=== PATIENT | male | born 1950 | race Caucasian/White ===

== ENCOUNTER → 2016-12-07 07:58 | Outpatient (CLI) | payer MEDICARE, OTHER ==
[2012-10-11 21:46] VITALS: BMI 27.2
[~2016-12-07 07:58] MED LIST: CENTRUM COMPLE1 EACH PO; DIOVAN160 MG PO; NORVASC10 MG PO; OMEGA 3 FISH OI1 CAP PO
[2016-12-10 07:34] VITALS: BMI 27.0
== END ==
LOC: D.MRI 07:58
DX: R51 Headache (principal)

== ENCOUNTER 2016-12-10 06:39 | Outpatient (CLI) | payer MEDICARE, OTHER ==
[~2016-12-10] VITALS: Ht 175.3 cm; Wt 83.2 kg
--- NOTE | ~2016-12-10 | HEMODYNAMI ---
PATIENT:GEOFF MITCHELL MEDICAL RECORD: [id number] : 52 LOCATION:[facility] ADMISSION DATE: 12/10/16 Generatedon:12/11/20166:25 Patient name: GEOFF MITCHELL Patient #: [id number] : 1950 Date of study: 12/10/2016 Page: Of Hemodynamic Procedure Report Patient Data Patient Demographics Procedure consent was obtained First Name: GEOFF Gender: Male Last Name: PAULA : 1950 Middle Initial: A Age: 66 year(s) Patient #: [id number] Race: SSN: [id number] Additional ID: [id number] Contact details Address: [address] [place] [address] State: [place] City: [place] Zip code: [address] Admission Admission Data Admission Date: 12/10/2016 Admission Time: 6:39 Arrival Date: 12/10/2016 Arrival Time: 9:00 Admit Source: Other Insurance Payor: Medicare Height (in.): 69.5 BSA: 2.03 (m2) Height (cm.): 176.53 BMI: 27.51 (kg/m2) Weight (lbs.): 189 Weight (kg.): 85.73 Lab Results Lab Result Date: 12/10/2016 Lab Result Time: 0:00 Biochemistry Name Units Result Min Max BUN mg/dl 20 --(----)*- 7 18 Creatinine mg/dl 1 --(--*-)-- 0.6 1.3 CBC Name Units Result Min Max Hemoglobin g/dl 14.9 --(-*--)-- 13.5 17.5 Procedure Procedure Types Cath Procedure Diagnostic Procedure [facility] w/Coronaries Procedure Description Procedure Date Procedure Date: 12/10/2016 Procedure Start Time: 9:13 Procedure End Time: 9:25 Procedure Staff Name Function Elizabeth Thapa RT Monitor Sanjay Cummings RN Childhood Development Teacher Anh Almonte RN Nurse Randy Choe MD Performing Physician Khoa Villegas RT Scrub Amparo Cazares RT Monitor Procedure Data Cath Procedure Fluoroscopy Diagnostic fluoroscopy Total fluoroscopy Time: 2.9 time: 2.9 min min Diagnostic fluoroscopy Total fluoroscopy dose: 420 dose: 420 mGy mGy Contrast Material Contrast Material Type Amount (ml) Isovue 370 60 Entry Location Entry Primary Successful Side Size Upsize Upsize Entry Closure Foley ccessful Closure Location (Fr) 1 (Fr) 2 (Fr) Remarks Device Remarks Radial Right 6 Fr Mechanical artery Short Compression Estimated blood loss: 5 ml Diagnostic catheters Device Type Used For End Catheter Placement Terumo 5Fr Tony 110cm Multi-vessel catheter Angiography Cordis Infinity 5Fr AR Right Coronary MOD Catheter Angiography Procedure Complications No complications Procedure Medications Medication Administration Route Dosage Oxygen NC 2 l/min Lidocaine 2% added to field 20 Heparin Flush Bag added to field 2 bags (1000units/500ml NS) 0.9% NaCl I.V. 100 ml/hr Radial Cocktail I.A. 1 syringe (Verapomil 2mg/Nitro 400mcg/Heparin 1500units) Versed I.V. 1 mg Fentanyl I.V. 50 mcg Versed I.V. 1 mg Fentanyl I.V. 50 mcg Versed I.V. 1 mg Fentanyl I.V. 50 mcg Versed I.V. 1 mg Fentanyl I.V. 50 mcg Versed I.V. 0.5 mg Fentanyl I.V. 25 mcg Hemodynamics Rest BSA: 2.03 (m2) HGB: 14.9 (g/dl) O2 Consumption: Estimated: 234.94 (ml/min) O2 Co nsumption indexed: Estimated:115.73 (ml/min/m) Heart Rate: 68 (bpm) Pressure Samples Time Site Value (mmHg) Purpose Heart Use Rate(bpm) 9:18 LV 139/-7,14 Snapshot 76 9:18 LV 117/-6,7 Pullback 83 9:18 AO 104/66(79) Pullback 83 Gradients Valve Time Site 1 Site 2 Mean SEP/DFP Peak To Heart Use (mmHg) (sec/min) Peak Rate (mmHg) (bpm) Aortic 9:18 LV AO 13 6 13 83 117/-6,7 104/66(79) Calculations Valve P-P Mean Valve Index Valve Source Name Gradient Area Flow (cm2) Aortic 13 13 13 13 Snapshots Pre Cath Intra NCS Post Cath Vital Signs Time Heart Resp SPO2 NIBP (mmHg) Rhythm Pain Sedation Rate (ipm) (%) Status Level (bpm) 8:59:43 73 16 98 129/84(109) NSR 0 (11) 10(A) , No pain 9:03:51 68 16 95 120/79(92) NSR 0 (11) 10(A) , No pain 9:07:59 75 16 97 114/75(95) NSR 0 (11) 10(A) , No pain 9:12:04 59 16 97 112/73(92) NSR 0 (11) 9(A) , No pain 9:16:10 61 18 96 106/75(89) NSR 0 (11) 9(A) , No pain 9:20:14 77 16 95 109/66(88) NSR 0 (11) 10(A) , No pain 9:24:20 69 17 95 103/67(76) NSR 0 (11) 10(A) , No pain Medications Time Medication Route Dose Verified Delivered Reason Notes E ffectiveness by by 8:57:03 Oxygen NC 2 l/min Randy Buffie used for Дмитрий Almonte RN procedure 9:03:15 Versed I.V. 1 mg Randy Buffie for sedation Дмитрий Almonte RN 9:03:22 Fentanyl I.V. 50 mcg Randy Buffie for sedation Дмитрий Almonte RN 9:04:33 Lidocaine 2% added 20ml Randy Randy for local to vial Дмитрий Choe MD anesthetic field 9:04:42 Heparin Flush added 2 bags Randy Randy used for Bag to Дмитрий Choe MD procedure (1000units/500ml field NS) 9:05:30 0.9% NaCl I.V. 100 Randy Buffie Per ml/hr Дмитрий Almonte RN physician 9:06:23 Versed I.V. 1 mg Randy Buffie for sedation Дмитрий Almonte RN 9:06:27 Fentanyl I.V. 50 mcg Randy Buffie for sedation Дмитрий Almonte RN 9:15:48 Versed I.V. 1 mg Randy Buffie for sedation Дмитрий Almonte RN 9:15:52 Fentanyl I.V. 50 mcg Randy Buffie for sedation Дмитрий Almonte RN 9:17:05 Radial Cocktail I.A. 1 Randy Randy for (Verapomil syringe Дмитрий Choe MD vasodilation 2mg/Nitro 400mcg/Hepari 9:19:21 Versed I.V. 1 mg Randy Randy for sedation Дмитрий Choe MD 9:19:25 Fentanyl I.V. 50 mcg Randy Randy for sedation Дмитрий Choe MD 9:22:42 Versed I.V. 0.5 mg Randy Randy for sedation Дмитрий Cheo MD 9:22:45 Fentanyl I.V. 25 mcg Randy Randy for sedation Дмитрий Choe MD Procedure Log Time Note 8:21:53 Sanjay Cummings RN sent for patient. Start room use. 8:37:33 Informed consent obtained and on chart 8:37:58 Admit Source: Other 8:38:07 Arrival Date: 12/10/2016 9:00:00 AM 8:38:17 Insurance Payor : Medicare 8:41:15 Lab Result : Hemoglobin 14.9 g/dl 8:41:15 Lab Result : Creatinine 1 mg/dl 8:41:15 Lab Result : BUN 20 mg/dl 8:41:26 Diagnostic Cath Status : Elective 8:42:01 Time tracking: Regular hours 8:42:06 Plan of Care:Hemodynamics will remain stable., Cardiac rhythm will remain stable., Comfort level will be maintained., Respiratory function will remain adequate., Patient/ family verbilizes understanding of procedure., Procedure tolerated without complication., Recovers from procedure without complications.. 8:43:32 Patient Height : 69.5 inches 8:43:46 Patient Weight : 189 lbs 8:48:36 Patient received from Outpatients to [facility] 1 Alert and oriented. Tansferred to table in Supine position. 8:48:37 Warm blankets applied, and cash hugger turned on for patient comfort. 8:48:38 ECG and BP/O2 sat monitors applied to patient. 8:48:38 Correct patient and procedure confirmed by team. 8:57:03 Oxygen 2 l/min NC was given by Anh Alomnte RN; used for procedure; 8:58:39 Vital chart was started 8:58:39 Baseline sample Acquired. 8:58:43 Rhythm: sinus rhythm 8:58:45 Full Disclosure recording started 8:58:56 H&P Date Dictated: 11/20/2016 Within 30 days and on chart., H&P Addendum completed by physician on day of procedure. (MUST COMPLETE FOR ALL OUTPATIENTS). 8:58:58 Pre-op teaching completed and patient verbalized understanding. 8:58:58 Pre-procedure instructions explained to patient. 8:58:59 Family in waiting room. 8:59:02 Patient NPO since Midnight. 9:00:20 Is the patient allergic to Iodine/contrast media? No. 9:00:22 Was the patient premedicated? No 9:00:23 Is patient on blood thinner?No 9:00:24 Patient diabetic? No. 9:00:27 Previous problem with sedation/anesthesia? No ? 9:00:34 Snore? Yes 9:00:36 Sleep apnea? No 9:00:37 Deviated septum? No 9:00:38 Sticks out tongue? Yes 9:00:38 Opens mouth fully? Yes 9:00:41 Airway obstruction? No ? 9:00:43 Dentures? No ? 9:00:47 Pre procedure: right dorsailis pedis pulse 1+ Palpable, but thready & weak; easily obliterated 9:00:53 Patient pain scale 0/10 ?. 9:01:01 IV patent on arrival in left wrist with 0.9% NaCl at O. 9:01:08 Lab results completed and on chart. 9:01:13 Right Radial & Right Groin area was prepped with chlora-prep and draped in sterile fashion 9:01:14 Sharps counted by scrub and verified by R.N. 9:01:14 Alarms reviewed by R. N. 9::16 --------ALL STOP TIME OUT------ 9:01:16 Physician arrived 9:01:17 Final Timeout: patient, procedure, and site verified with staff and physician. All members of the team are in agreement. 9:01:19 Right Radial & Right Groin site verified by team. 9::22 Physical assessment completed. ASA score P 2 - A patient with mild systemic disease as per Aurelio Neal MD. 9:03:15 Versed 1 mg I.V. was given by Anh Almonte RN; for sedation; 9:03:20 Sedation plan: IV Moderate Sedation Versed, Fentanyl 9::22 Fentanyl 50 mcg I.V. was given by Anh Almonte RN; for sedation; 9:03:31 Acist Syringe opened to sterile field. 9:03:31 Use device set Radial Dx 9:03:32 Cardinal Cath Pack opened to sterile field. 9:03:33 Terumo 6Fr Slender Glidesheath opened to sterile field. 9:03:33 Bag Decanter opened to sterile field. 9:03:34 Acist Manifold opened to sterile field. 9:03:34 Acist Hand Control opened to sterile field. 9:03:34 St Gagan 260cm J .035 wire opened to sterile field. 9:03:36 Tegaderm 4 x 4 opened to sterile field. 9:04:33 Lidocaine 2% 20ml vial added to field was given by Randy Choe MD; for local anesthetic; 9:04:42 Heparin Flush Bag (1000units/500ml NS) 2 bags added to field was given by Randy Choe MD; used for procedure; 9:05:30 0.9% NaCl 100 ml/hr I.V. was given by Anh Almonte RN; Per physician; 9:06:23 Versed 1 mg I.V. was given by Anh Almonte RN; for sedation; 9:06:27 Fentanyl 50 mcg I.V. was given by Anh Almonte RN; for sedation; 9:13:30 Procedure started. 9:13:36 Local anesthetic to right radial artery with Lidocaine 2% by Randy Choe MD.INITIAL ACCESS ONLY 9:15:48 Versed 1 mg I.V. was given by Anh Almonte RN; for sedation; 9:15:52 Fentanyl 50 mcg I.V. was given by Anh Almonte RN; for sedation; 9:16:24 A 6 Fr Short sheath was inserted into the Right Radial artery 9:16:47 A Terumo 5Fr Tony 110cm catheter was advanced over the wire and used for Multi-vessel Angiography. 9:17:05 Radial Cocktail (Verapomil 2mg/Nitro 400mcg/Heparin 1500units) 1 syringe I.A. was given by Randy Choe MD; for vasodilation; 9:18:18 LV hemodynamics recorded. 9:18:19 LV gram done using [place] 9:18:21 Injector settings: Ml/sec: 5, Volume: 15, 9:18:27 EF : 55 % 9:18:58 LCA angiography performed. 9:19:01 Injector settings: Ml/sec: 3, Volume: 6, 9:19:21 Versed 1 mg I.V. was given by Randy Choe MD; for sedation; 9::25 Fentanyl 50 mcg I.V. was given by Randy Choe MD; for sedation; 9:21:13 Catheter removed. 9:22:09 A Cordis Infinity 5Fr AR MOD Catheter was advanced over the wire and used for Right Coronary Angiography. 9:22:42 Versed 0.5 mg I.V. was given by Randy Choe MD; for sedation; 9:22:45 Fentanyl 25 mcg I.V. was given by Randy Choe MD; for sedation; 9:23:31 RCA angiography performed. 9:23:34 Injector settings: Ml/sec: 3, Volume: 6, 9:23:42 Catheter removed. 9:23:58 Terumo TR Band Standard opened to sterile field. 9:24:11 Sheath removed intact; hemostasis achieved with Mechanical Compression to the Right Radial artery. 9:24:13 Procedure ended.(Physican Out) 9:24:37 Fluoroscopy time 02.90 minutes. 9:24:42 Fluoroscopy dose: 420 mGy 9:24:42 Flurop Dose total: 420 9:24:46 Contrast amount:Isovue 370 60ml. 9:24:47 Sharps counted by scrub and verified by R.N. 9:24:50 TR band inflated with 10cc of air. 9:24:51 Insertion/operative site no bleeding no hematoma. 9:24:58 Post right radial artery:stable 9:25:00 Post Procedure Pulses reassessed and unchanged 9:25:03 Post procedure rhythm: unchanged. 9:25:06 Estimated blood loss: 5 ml 9:25:08 Patient needs reinforcement of post procedure teaching. 9:25:08 Post procedure instruction explained to patient.Patient verbalizes understanding. 9:25:24 Procedure and supply charges have been captured, reviewed, submitted and are correct. 9:25:28 Procedure Complication : No complications 9:25:30 Vital chart was stopped 9:25:31 See physician's report for complete and final results. 9:25:39 Report given to Post Procedure Room. 9::42 Patient transfered to Post Procedure Room with Stretcher. 9:25:44 Full Disclosure recording stopped 9:25:44 Procedure ended. 9:26:48 End room use (Document Last) 6:24:23 Cook 21G 4cm Radial Needle opened to sterile field. Device Usage Item Name Manufacture Quantity Catalog Hospital Part Current Minimal Lot# / Number Charge Number Stock Stock Serial# Code Acist Acist 1 99419 [id number] 163196 741323 20 Syringe [employer] Cardinal Cardinal 1 [id number] 833103 53364 134618 5 Cath Pack Health Bag Microtek 1 2002S 878472 33140 677535 5 Decanter [employer] Terumo 6Fr Terumo 1 [id number] 475737 948619 509786 [address]agan St Gagan 1 347650 897704 226511 838408 30 260cm J .035 wire Acist Hand Acist 1 67585 496364 068364 565857 5 Control [employer] Inc Acist Acist 1 70002 208772 635189 402028 5 Manifold [employer] Inc Tegaderm 4 3M 1 1626W 263045 038060 923185 5 x 4 Terumo 5Fr Terumo 1 40-5453 512921 790018 447050 5 Tony 110cm catheter Cordis Cardinal 1 [id number] 793953 700513 321822 15 Infinity Health 5Fr AR MOD Catheter Terumo TR Terumo 1 [id number] 962256 251444 195086 40 Band Standard Cook 21G HRBoss 1 [id number] 324342 877976 5 4cm Radial Needle Signature Audit Braham Stage Time Signature Unsigned Intra-Procedure 12/10/2016 Elizabeth Christensen Counts 9:29:31 AM RT(R) RT(R) 12/11/2016 6:24:04 AM Intra-Procedure 12/11/2016 Amparo 6:25:14 AM Counts RT(R) Signatures Monitor : Elizabeth Thapa RT Signature : Date : Time : Monitor : Amparo Signature : Counts RT Date : Time : [address] [place] [address]
[2016-12-10] MEDS ORDERED: NORVASC10 MG PO (07:18)
[2016-12-10] MEDS ORDERED: DIOVAN160 MG PO (07:18)
[2016-12-10] MEDS ORDERED: CENTRUM COMPLE1 EACH PO (07:19)
[2016-12-10] MEDS ORDERED: OMEGA 3 FISH OI1 CAP PO (07:23)
[2016-12-10 07:29] LABS: EOSINOPHILS 7.4 % (0-7); HEMATOCRIT 43.8 % (42.0-54.0); HEMOGLOBIN 14.9 g/dL (13.5-17.5); IMMATURE GRANULOCYTES 0.2 % (0-5); LYMPHOCYTES 31.9 % (15-50); MCV 91.1 fL (80.0-100.0); MEAN PLATELET VOLUME 9.8 fL (7.4-10.4); MONOCYTES 12.6 % (2-11); NEUTROPHILS 46.9 % (40-80); PLATELET COUNT 238 10x3/uL (130-400); RBC 4.81 10x6/uL (4.20-6.10); RDW 12.5 % (11.5-14.5); WBC 6.1 10x3/uL (4.8-10.8)
[2016-12-10 07:34] VITALS: BP 126/80; Ht 175.3 cm; Wt 83.2 kg
[2016-12-10 07:44] LABS: CALC OSMOLALITY 285 mosm/kg (275-300); CARBON DIOXIDE 31.6 mmol/L (21.0-32.0); CHLORIDE - SERUM 105 mmol/L (98-107); GLUCOSE 98 mg/dL (74-106); POTASSIUM - SERUM 4.1 mmol/L (3.5-5.1); SODIUM 142 mmol/L (136-145); UREA NITROGEN 20 mg/dL (7-18); eGFR NON AFRICAN AMERICAN 80 mL/min (90-120)
--- NOTE | 2016-12-10 10:23 | NUR ---
VSS WITH CHEST PAIN DENIED TR BAND TO R/WRIST CDI NO BLEEDING NO HEMATOMA NOTED.
--- NOTE | 2016-12-10 11:05 | NUR ---
VOIDED 300 CC URINE VIA URINAL.
--- NOTE | 2016-12-10 11:34 | NUR ---
4 CC AIR REMOVED FROM TR BAND WITH NO BLEEDING NO HEMATOMA NOTED. CHEST PAIN DENIED WITH VSS
--- NOTE | 2016-12-10 12:03 | NUR ---
REMAINDER OF AIR REMOVED FROM R WRIST TR BAND. TEGADERM APPLIED. D/C INSTRUCTIONS DISCUSSED WITH PATIENT AND AT BEDSIDE. WHEELED OUT VIA WHEELCHAIR BY CATH TEAM.
--- NOTE | 2016-12-15 15:27 | OP ---
PATIENT NAME: GEOFF MITCHELL MEDICAL RECORD: [id number] :52 LOCATION:[facility] ADMISSION DATE: SURGEON: JUANY GAVIN M.D. DATE OF OPERATION: 12/10/2016 Catheterization Report REFERRING PHYSICIAN: Sanford King MD. PROCEDURES PERFORMED: 1. Selective coronary angiography. 2. Left heart catheterization with ventriculogram. INDICATION: A 66-year-old gentleman presents with erratic blood pressure. Recent Cardiolite stress test revealed an inferior ischemia. EQUIPMENT USED: A 5-Turkish Toyn catheter, AR modified catheter. TECHNIQUE: A 6-Turkish sheath was inserted in retrograde fashion in the right radial artery. Next, selective coronary angiography was performed in standard view using 5-Turkish Tony catheter and AR modified catheters. Left heart catheterization was performed using the Tony catheter. CORONARY ANATOMY: 1. Left main: Left main trunk is large in caliber. It gives rise to the LAD and circumflex. It is widely patent. 2. LAD: This is a large caliber vessel extending to the apex. The proximal vessel has been stented. The stent is widely patent. There is no evidence of restenosis. 3. Circumflex: This vessel is moderate in caliber. It provides a lateral branch in mid segment. The circumflex and lateral branch are smooth-walled and vessels and are angiographically normal. 4. Right coronary: This vessel is large in caliber and dominant. It supplies the PDA and posterolateral branch in distal segments. The proximal vessel has mild irregularities, but nothing worse than 20%. 5. Left ventricle: Left ventricle is normal in size and function. No wall motion abnormalities are noted. Estimated ejection fraction is 55%. IMPRESSION: 1. Widely patent stent in the left anterior descending without evidence of restenosis. 2. Normal left ventricular function. RECOMMENDATIONS: I suspect the Cardiolite stress test was a false positive. We will continue with medical management. TRANSINT:[id number] Voice Confirmation ID: [id number] DOCUMENT ID: [id number] OPERATIVE REPORT [id number] GEOFF MITCHELL JUANY GAVIN M.D. at 1527 CC: [id number] DICTATION DATE: 12/10/16 0932 [facility] OPERATOR: 12/10/16 1052 [facility] CLI 12/10/16 [facility] [address] [place] [address]
== END 2016-12-10 12:09 | disposition home or self-care (01) ==
LOC: D.CATH 06:39
PROVIDERS: Internal Medicine Cardiovascular Disease
DX: I25.10 Atherosclerotic heart disease of native coronary artery without angina pectoris (principal); Z95.5 Presence of coronary angioplasty implant and graft; R94.39 Abnormal result of other cardiovascular function study

== ENCOUNTER → 2016-12-21 07:34 | Outpatient (CLI) | payer MEDICARE, OTHER ==
[2016-12-10 07:34] VITALS: BMI 27.0
== END | disposition home or self-care (01) ==
LOC: D.CT 07:34
PROVIDERS: Family Medicine
DX: N13.30 Unspecified hydronephrosis (principal)